=== PATIENT | female | born 1960 | race Caucasian/White ===

== ENCOUNTER 2018-12-23 11:47 | Emergency (ER) | payer MEDICAID, MEDICARE ==
[2018-12-23 12:14] VITALS: TEMP 98.2
[2018-12-23] MEDS ORDERED: Aspirin 325 mg EC Tablets PO STA (13:12)
[2018-12-23 14:10] LABS: ALB/GLOB RATIO 1.2 (1.0-2.1); ALBUMIN 3.9 g/dL (3.5-5.0); BLOOD UREA NITROGEN 12 mg/dL (7-17); GFR NON-AFRICAN AMERICAN > 60
[2018-12-23 14:11] LABS: BASO % 0.7 % (0.0-2.0); EOS # 0.2 K/uL (0.0-0.7); EOS % 3.3 % (0.0-4.0); HEMOGLOBIN 12.6 g/dL (11.0-16.0); LYMPH # 2.5 K/uL (1.0-4.3); LYMPH % 47.8 % (20.0-40.0); MEAN CORPUSCULAR HEMOGLOBIN 31.5 pg (27.0-31.0); MEAN CORPUSCULAR HGB CONC 33.5 g/dL (33.0-37.0); MEAN PLATELET VOLUME 8.2 fL (7.2-11.7); MONO # 0.7 K/uL (0.0-0.8); MONO % 12.6 % (0.0-10.0); NEUT # 1.9 K/uL (1.8-7.0); NEUT % 35.6 % (50.0-75.0); NRBC % 0.1 % (0.0-2.0); RBC 3.98 Mil/uL (3.80-5.20); RED CELL DISTRIBUTION WIDTH 13.2 % (11.5-14.5); SQUAMOUS EPITHIAL 3 /hpf (0-5); URINE BACTERIA RARE (<OCC); URINE BILIRUBIN NEGATIVE (NEGATIVE); URINE BLOOD 1+ (NEGATIVE); URINE CLARITY Clear (Clear); URINE COLOR Yellow (YELLOW); URINE GLUCOSE (UA) NORMAL (Normal); URINE LEUKOCYTE ESTERASE NEG Leu/uL (Negative); URINE PROTEIN NEGATIVE (NEGATIVE); URINE UROBILINOGEN NORMAL mg/dL (0.2-1.0); WHITE BLOOD COUNT 5.3 K/uL (4.8-10.8)
[2018-12-23 14:15] LABS: ALT/SGPT 10 U/L (9-52); AST/SGOT 25 U/L (14-36)
--- NOTE | 2018-12-23 14:21 | C.PDOC ---
History Of Present Illness 58 y/o female, w/PMhx of seizure disorder, presents to the ER complaining of palpitations which has been present for the past 2-3 days. Patient states that she has associated intermittent sharp stabbing chest pain. Patient reports that the pain is worse when she is lying supine. She notes that has dizziness which is not associated with the palpitations. She sees neurology on tegular basis. Denies having fever, chills, headache, dizziness, nausea, and vomiting.Of note, patient has history of smoking and family history of heart disease ( mother and father). Time Seen by Provider: 12/23/18 13:08 Chief Complaint (Nursing): Chest Pain History Per: Patient History/Exam Limitations: no limitations Onset/Duration Of Symptoms: Days Current Symptoms Are (Timing): Still Present Severity: Moderate Past Medical History Reviewed: Historical Data, Nursing Documentation, Vital Signs Vital Signs: Last Vital Signs Temp 98.2 F 12/23/18 12:10 Pulse 90 12/23/18 13:00 Resp 18 12/23/18 12:10 BP 114/80 12/23/18 13:00 Pulse Ox 93 L 12/23/18 12:10 - Medical History PMH: Anxiety, Arthritis, Bipolar Disorder, Depression, Seizures Denies: Migraine Other Surgeries: Hx of surgeries Family History: States: No Known Family Hx - Social History Hx Tobacco Use: Yes Hx Alcohol Use: No Hx Substance Use: No - Immunization History Hx Tetanus Toxoid Vaccination: Yes Hx Influenza Vaccination: No Hx Pneumococcal Vaccination: No Review Of Systems Constitutional: Negative for: Fever, Chills Cardiovascular: Positive for: Chest Pain, Palpitations Respiratory: Negative for: Shortness of Breath Gastrointestinal: Negative for: Nausea, Vomiting, Abdominal Pain Neurological: Positive for: Dizziness Physical Exam - Physical Exam Appears: Non-toxic, No Acute Distress Skin: Normal Color, Warm, Dry Head: Atraumatic, Normacephalic Eye(s): bilateral: Normal Inspection Nose: Normal Oral Mucosa: Moist Neck: Supple Chest: Symmetrical Cardiovascular: Rhythm Regular Respiratory: Normal Breath Sounds, No Rales, No Rhonchi, No Wheezing Gastrointestinal/Abdominal: Normal Exam, Soft, No Tenderness, No Guarding, No Rebound Extremity: Normal ROM Neurological/Psych: Oriented x3, Normal Speech, Normal Motor, Normal Sensation ED Course And Treatment - Laboratory Results Result Diagrams: 12/23/18 13:53 12/23/18 13:53 Lab Results: Total Bilirubin 0.4 mg/dL (0.2-1.3) 12/23/18 13:53 AST 25 U/L (14-36) 12/23/18 13:53 ALT 10 U/L (9-52) 12/23/18 13:53 Alkaline Phosphatase 50 U/L (38-126) 12/23/18 13:53 Total Protein 7.0 g/dL (6.3-8.3) 12/23/18 13:53 Albumin 3.9 g/dL (3.5-5.0) 12/23/18 13:53 Globulin 3.2 gm/dL (2.2-3.9) 12/23/18 13:53 Albumin/Globulin Ratio 1.2 (1.0-2.1) 12/23/18 13:53 Urine Color Yellow (YELLOW) 12/23/18 13:53 Urine Clarity Clear (Clear) 12/23/18 13:53 Urine pH 5.0 (5.0-8.0) 12/23/18 13:53 Ur Specific [place] 1.025 (1.003-1.030) 12/23/18 13:53 Urine Protein Negative mg/dL (NEGATIVE) 12/23/18 13:53 Urine Glucose (UA) Normal mg/dL (Normal) 12/23/18 13:53 Urine Ketones Negative mg/dL (NEGATIVE) 12/23/18 13:53 Urine Blood 1+ (NEGATIVE) H 12/23/18 13:53 Urine Nitrate Negative (NEGATIVE) 12/23/18 13:53 Urine Bilirubin Negative (NEGATIVE) 12/23/18 13:53 Urine Urobilinogen Normal mg/dL (0.2-1.0) 12/23/18 13:53 Ur Leukocyte Esterase Neg [place]/uL (Negative) 12/23/18 13:53 Urine WBC (Auto) < 1 /hpf (0-5) 12/23/18 13:53 Urine RBC (Auto) 2 /hpf (0-3) 12/23/18 13:53 Ur Squamous Epith Cells 3 /hpf (0-5) 12/23/18 13:53 Urine Bacteria Rare (<OCC) 12/23/18 13:53 Lab Interpretation: Normal ECG: Interpreted By Me ECG Rhythm: Sinus Rhythm ECG Interpretation: Normal O2 Sat by Pulse Oximetry: 98 Pulse Ox Interpretation: Normal - Radiology CXR: Interpreted by Me CXR Interpretation: Yes: No Acute Disease Reevaluation Time: 14:47 Reassessment Condition: Improved (Patient remains asymptomatic in ED.) Medical Decision Making Medical Decision Making: Plan: --Labs --UA --EKG --CXR --Aspirin PO Disposition Counseled Patient/Family Regarding: Studies Performed, Diagnosis, Need For Followup - Disposition Referrals: Radha Chou MD [Medical Doctor] - Disposition: HOME/ ROUTINE Disposition Time: 14:48 Condition: STABLE Instructions: Palpitations (DC), Chest Pain Forms: JCD (E[place]ian) - Clinical Impression Clinical Impression: Chest pain, Palpitations - Scribe Statement The provider has reviewed the documentation as recorded by the Aprilibdonte Kumar Provider Attestation: All medical record entries made by the Scribe were at my direction and personally dictated by me. I have reviewed the chart and agree that the record accurately reflects my personal performance of the history, physical exam, medical decision making, and the department course for this patient. I have also personally directed, reviewed, and agree with the discharge instructions and disposition.
--- NOTE | 2018-12-23 14:37 | RAD ---
Date of service: 12/23/2018 PROCEDURE: CHEST RADIOGRAPH, 1 VIEW HISTORY: Palpations COMPARISON: 07/08/2014. FINDINGS: LUNGS: The lungs are well inflated and clear. PLEURA: No pneumothorax or pleural effusion. CARDIOVASCULAR: The heart is normal in size. No aortic atherosclerotic calcifications present. OSSEOUS STRUCTURES: Within normal limits for the patient's age. VISUALIZED UPPER ABDOMEN: Normal. OTHER FINDINGS: None. IMPRESSION: No active pulmonary disease.
[2018-12-23 15:03] VITALS: BP 129/77; PULSE 88; RESP 17; O2SAT 100
--- NOTE | 2018-12-24 12:28 | CARD ---
APPROVED REPORT Date of service: 12/23/2018 EKG Measurement Heart [id number] <Conclusion> Normal sinus rhythm Normal ECG
== END 2018-12-23 15:03 | disposition home or self-care (01) ==
LOC: C.ER 11:47
DX: R00.2 Palpitations (principal); R07.9 Chest pain, unspecified